=== PATIENT | female | born 1975 | race Caucasian/White ===

== ENCOUNTER 2024-04-28 09:03 | Emergency (ER) | payer BC | END 2024-04-28 10:04 | disposition home or self-care (01) | LOC: FB.ED 09:03 | DX: S06.2X0A Diffuse traumatic brain injury without loss of consciousness, initial encounter (principal); F17.210 Nicotine dependence, cigarettes, uncomplicated; Z91.040 Latex allergy status; W13.3XXA Fall through floor, initial encounter | CPT/HCPCS: 99283 ==